=== PATIENT | female | born 1945 | race Caucasian/White ===

== ENCOUNTER → 2016-07-27 | Outpatient (REF) | payer OTHER ==
[2016-07-27 12:33] LABS: ALBUMIN 3.7 GM/DL (3.2-5.2); ALBUMIN/GLOBULIN RATIO 1.19 (1.00-1.93); ALKALINE PHOSPHATASE 59 U/L (45-117); ALT/SGPT 21 U/L (12-78); ANION GAP 7 MEQ/L (8-16); AST/SGOT 11 U/L (15-37); BILIRUBIN,TOTAL 0.4 MG/DL (0.2-1.0); BLOOD UREA NITROGEN 20 MG/DL (7-18); CALCIUM LEVEL 8.9 MG/DL (8.8-10.2); CARBON DIOXIDE LEVEL 27 MEQ/L (21-32); CHLORIDE LEVEL 109 MEQ/L (98-107); CHOLESTEROL LEVEL 218 MG/DL (<200); CREATININE FOR GFR 0.95 MG/DL (0.55-1.02); FREE T4 1.25 NG/DL (0.76-1.46); GLOMERULAR FILTRATION RATE > 60.0 (>39); GLUCOSE, FASTING 90 MG/DL (83-110); POTASSIUM SERUM 4.1 MEQ/L (3.5-5.1); SODIUM LEVEL 143 MEQ/L (136-145); TOTAL PROTEIN 6.8 GM/DL (6.4-8.2); TRIGLYCERIDES LEVEL 166 MG/DL (<150)
== END ==
LOC: M SFHCCLAY 08:13
PROVIDERS: ATTEND Family Medicine
DX: E78.2 Mixed hyperlipidemia (principal); E03.9 Hypothyroidism, unspecified; M85.80 Other specified disorders of bone density and structure, unspecified site

== ENCOUNTER → 2017-01-28 | Outpatient (REF) | payer OTHER ==
[2017-01-28 13:46] LABS: ALBUMIN 3.8 GM/DL (3.2-5.2); ALBUMIN/GLOBULIN RATIO 1.15 (1.00-1.93); ALKALINE PHOSPHATASE 55 U/L (45-117); ALT/SGPT 25 U/L (12-78); ANION GAP 9 MEQ/L (8-16); AST/SGOT 14 U/L (15-37); BILIRUBIN,TOTAL 0.4 MG/DL (0.2-1.0); BLOOD UREA NITROGEN 19 MG/DL (7-18); CALCIUM LEVEL 9.4 MG/DL (8.8-10.2); CARBON DIOXIDE LEVEL 28 MEQ/L (21-32); CHLORIDE LEVEL 106 MEQ/L (98-107); CHOLESTEROL LEVEL 217 MG/DL (<200); FREE T4 1.19 NG/DL (0.76-1.46); GLOMERULAR FILTRATION RATE > 60.0 (>39); GLUCOSE, FASTING 96 MG/DL (83-110); POTASSIUM SERUM 4.1 MEQ/L (3.5-5.1); SODIUM LEVEL 143 MEQ/L (136-145); TOTAL PROTEIN 7.1 GM/DL (6.4-8.2); TRIGLYCERIDES LEVEL 132 MG/DL (<150)
== END ==
LOC: M SFHCCLAY 08:37
PROVIDERS: ATTEND Family Medicine
DX: E78.2 Mixed hyperlipidemia (principal); E03.9 Hypothyroidism, unspecified; M85.80 Other specified disorders of bone density and structure, unspecified site

== ENCOUNTER 2017-04-28 06:40 | Day surgery (SDC) | payer OTHER ==
[2017-04-28] MEDS: NS 500 ML IV (07:09)
[2017-04-28] MEDS ORDERED: PROPOFOL 200 MG/20 ML VIAL As Ordered (07:20)
[2017-04-28] MEDS ORDERED: LIDOCAINE 2% INJ 100 MG/5 ML SDV (FOR ANES.) As Ordered (07:20)
== END 2017-04-28 08:23 | disposition home or self-care (01) ==
LOC: M OPP 06:40
DX: Z12.11 Encounter for screening for malignant neoplasm of colon (principal); K64.0 First degree hemorrhoids; K57.30 Diverticulosis of large intestine without perforation or abscess without bleeding; Z80.0 Family history of malignant neoplasm of digestive organs; E03.9 Hypothyroidism, unspecified; Z78.0 Asymptomatic menopausal state; R06.83 Snoring; Z79.899 Other long term (current) drug therapy
CPT/HCPCS: G0105

== ENCOUNTER → 2017-07-07 | Outpatient (REF) | payer OTHER ==
[2017-07-07 17:30] LABS: ALBUMIN 4.2 GM/DL (3.2-5.2); ALBUMIN/GLOBULIN RATIO 1.27 (1.00-1.93); ALKALINE PHOSPHATASE 64 U/L (45-117); ALT/SGPT 23 U/L (12-78); ANION GAP 6 MEQ/L (8-16); AST/SGOT 13 U/L (7-37); BILIRUBIN,TOTAL 0.4 MG/DL (0.2-1.0); BLOOD UREA NITROGEN 17 MG/DL (7-18); CALCIUM LEVEL 9.5 MG/DL (8.8-10.2); CARBON DIOXIDE LEVEL 29 MEQ/L (21-32); CHLORIDE LEVEL 107 MEQ/L (98-107); CHOLESTEROL LEVEL 239 MG/DL (<200); CHOLESTEROL RISK RATIO 3.567 (<5); CREATININE FOR GFR 0.92 MG/DL (0.55-1.30); GLOMERULAR FILTRATION RATE > 60.0 (>39); GLUCOSE, FASTING 87 MG/DL (70-100); HDL CHOLESTEROL 67 MG/DL (>40); LDL CHOLESTEROL 139.4 MG/DL (<100); NON-HDL-C 172 MG/DL; POTASSIUM SERUM 4.3 MEQ/L (3.5-5.1); SODIUM LEVEL 142 MEQ/L (136-145); TOTAL PROTEIN 7.5 GM/DL (6.4-8.2); TRIGLYCERIDES LEVEL 163 MG/DL (<150)
== END ==
LOC: M SFHCCLAY 11:58
DX: E78.2 Mixed hyperlipidemia (principal); E03.9 Hypothyroidism, unspecified
CPT/HCPCS: 84443

== ENCOUNTER → 2017-09-30 | Outpatient (REF) | payer OTHER ==
[2017-09-30 11:51] LABS: ALBUMIN 3.7 GM/DL (3.2-5.2); ALBUMIN/GLOBULIN RATIO 1.09 (1.00-1.93); ALKALINE PHOSPHATASE 109 U/L (45-117); ALT/SGPT 44 U/L (12-78); ANION GAP 6 MEQ/L (8-16); AST/SGOT 20 U/L (7-37); BILIRUBIN,TOTAL 0.5 MG/DL (0.2-1.0); BLOOD UREA NITROGEN 18 MG/DL (7-18); CALCIUM LEVEL 9.1 MG/DL (8.8-10.2); CARBON DIOXIDE LEVEL 29 MEQ/L (21-32); CHLORIDE LEVEL 107 MEQ/L (98-107); CHOLESTEROL LEVEL 161 MG/DL (<200); CHOLESTEROL RISK RATIO 3.354 (<5); CREATININE FOR GFR 0.84 MG/DL (0.55-1.30); GLOMERULAR FILTRATION RATE > 60.0 (>39); GLUCOSE, FASTING 110 MG/DL (70-100); HDL CHOLESTEROL 48 MG/DL (>40); LDL CHOLESTEROL 58.8 MG/DL (<100); NON-HDL-C 113 MG/DL; SODIUM LEVEL 142 MEQ/L (136-145); TOTAL PROTEIN 7.1 GM/DL (6.4-8.2); TRIGLYCERIDES LEVEL 271 MG/DL (<150)
== END ==
LOC: M SFHCCLAY 08:29
DX: E78.2 Mixed hyperlipidemia (principal)
CPT/HCPCS: 80053

== ENCOUNTER → 2018-01-04 | Outpatient (REF) | payer OTHER ==
[2018-01-04 12:45] LABS: ANION GAP 6 MEQ/L (8-16); BLOOD UREA NITROGEN 18 MG/DL (7-18); CALCIUM LEVEL 9.3 MG/DL (8.8-10.2); CARBON DIOXIDE LEVEL 30 MEQ/L (21-32); CHLORIDE LEVEL 107 MEQ/L (98-107); CREATININE FOR GFR 0.79 MG/DL (0.55-1.30); GLOMERULAR FILTRATION RATE > 60.0 (>39); GLUCOSE, FASTING 87 MG/DL (70-100); POTASSIUM SERUM 4.4 MEQ/L (3.5-5.1); SODIUM LEVEL 143 MEQ/L (136-145)
== END ==
LOC: M SFHCCLAY 08:45
DX: E03.9 Hypothyroidism, unspecified (principal)
CPT/HCPCS: 84443

== ENCOUNTER → 2018-05-25 | Outpatient (CLI) | payer MEDICARE ==
[~2018-05-25] MED LIST: FENO145T13 PO; LORA0.5T11 PO; SYNT50TA PO
--- NOTE | 2018-05-25 09:42 | REPMRS ---
Patient History The patient states she has not had a clinical breast exam in over a year. Patient is postmenopausal. Family history of breast cancer at age 72 in mother, breast cancer at age 63 in sister, breast cancer at age 65 in maternal aunt, colorectal cancer at age 60 in father. Taking unspecified hormones for 10 years. 3D TOMOSYNTHESIS WAS PERFORMED. Digital Mammo Screening Bilat: May 25, 2018 - Exam #: [id number] Bilateral CC and MLO view(s) were taken. Technologist: Kristal Leone Technologist Prior study comparison: July 14, 2011, bilateral digital mammo screening bilat performed at [facility]. March 06, 2008, right breast digital mammo diagnostic unilateral performed at [facility]. FINDINGS: There are scattered fibroglandular densities. There has been no change in the appearance of the mammogram from the prior studies. There is a mild amount of residual fibroglandular tissue which is fairly symmetric. There is no interval development of dominant mass, architectural distortion, or clustered microcalcification suggestive of malignancy. Assessment: BI-RADS/ACR category 1 mammogram. Negative Mammogram. Recommendation Routine screening mammogram in 1 year (for women over age 40). This mammogram was interpreted with the aid of an FDA-approved computer-aided dectection system. Electronically Signed By: Tim Howard MD 05/25/18 0942
== END ==
LOC: M RAD 07:56
PROVIDERS: ATTEND Family Medicine
DX: Z12.31 Encounter for screening mammogram for malignant neoplasm of breast (principal); Z78.0 Asymptomatic menopausal state; Z80.3 Family history of malignant neoplasm of breast; Z80.0 Family history of malignant neoplasm of digestive organs

== ENCOUNTER → 2018-07-04 | Outpatient (REF) | payer MEDICARE ==
[2018-07-04 12:27] LABS: ALBUMIN 3.5 GM/DL (3.2-5.2); ALT/SGPT 41 U/L (12-78); BILIRUBIN,TOTAL 0.6 MG/DL (0.2-1.0); BLOOD UREA NITROGEN 18 MG/DL (7-18); CALCIUM LEVEL 8.8 MG/DL (8.8-10.2); CARBON DIOXIDE LEVEL 25 MEQ/L (21-32); CHLORIDE LEVEL 109 MEQ/L (98-107); CHOLESTEROL LEVEL 173 MG/DL (<200); CREATININE FOR GFR 0.83 MG/DL (0.55-1.30); GLOMERULAR FILTRATION RATE > 60.0 (>39); GLUCOSE, FASTING 88 MG/DL (70-100); HDL CHOLESTEROL 46 MG/DL (>40); LDL CHOLESTEROL 68 MG/DL (<100); NON-HDL-C 127 MG/DL; POTASSIUM SERUM 4.2 MEQ/L (3.5-5.1); SODIUM LEVEL 142 MEQ/L (136-145); TOTAL PROTEIN 6.7 GM/DL (6.4-8.2); TRIGLYCERIDES LEVEL 296 MG/DL (<150)
== END ==
LOC: M SFHCCLAY 09:14
PROVIDERS: ATTEND Family Medicine
DX: E03.9 Hypothyroidism, unspecified (principal); E78.2 Mixed hyperlipidemia

== ENCOUNTER → 2019-07-03 | Outpatient (REF) | payer MEDICARE ==
[~2019-07-03] MED LIST changes: -FENO145T13 PO; +FENO145T7 PO; -LORA0.5T11 PO; +LORA0.5T5 PO
[2019-07-03 11:50] LABS: ALBUMIN 3.6 GM/DL (3.2-5.2); ALT/SGPT 46 U/L (12-78); BILIRUBIN,TOTAL 0.7 MG/DL (0.2-1.0); BLOOD UREA NITROGEN 17 MG/DL (7-18); CALCIUM LEVEL 9.3 MG/DL (8.8-10.2); CARBON DIOXIDE LEVEL 29 MEQ/L (21-32); CHLORIDE LEVEL 109 MEQ/L (98-107); CHOLESTEROL LEVEL 173 MG/DL (<200); CHOLESTEROL RISK RATIO 3.326 (<5); CREATININE FOR GFR 0.82 MG/DL (0.55-1.30); GLOMERULAR FILTRATION RATE > 60.0 (>39); GLUCOSE, FASTING 95 MG/DL (70-100); HDL CHOLESTEROL 52 MG/DL (>40); LDL CHOLESTEROL 76 MG/DL (<100); NON-HDL-C 121 MG/DL; POTASSIUM SERUM 4.2 MEQ/L (3.5-5.1); SODIUM LEVEL 142 MEQ/L (136-145); TOTAL PROTEIN 6.9 GM/DL (6.4-8.2); TRIGLYCERIDES LEVEL 224 MG/DL (<150)
== END ==
LOC: M SFHCCLAY 08:44
PROVIDERS: ATTEND Family Medicine
DX: E78.2 Mixed hyperlipidemia (principal); E03.9 Hypothyroidism, unspecified

== ENCOUNTER → 2020-07-01 | Outpatient (REF) | payer MEDICARE ==
[2020-07-02 12:06] LABS: ALBUMIN 3.5 GM/DL (3.2-5.2); ALT/SGPT 34 U/L (12-78); BILIRUBIN,TOTAL 0.6 MG/DL (0.2-1.0); BLOOD UREA NITROGEN 19 MG/DL (7-18); CALCIUM LEVEL 9.7 MG/DL (8.8-10.2); CARBON DIOXIDE LEVEL 30 MEQ/L (21-32); CHLORIDE LEVEL 107 MEQ/L (98-107); CHOLESTEROL LEVEL 166 MG/DL (<200); CHOLESTEROL RISK RATIO 3.531 (<5); CREATININE FOR GFR 0.86 MG/DL (0.55-1.30); GLOMERULAR FILTRATION RATE > 60.0 (>39); GLUCOSE, FASTING 120 MG/DL (70-100); HDL CHOLESTEROL 47 MG/DL (>40); LDL CHOLESTEROL 54 MG/DL (<100); NON-HDL-C 119 MG/DL; POTASSIUM SERUM 4.1 MEQ/L (3.5-5.1); SODIUM LEVEL 142 MEQ/L (136-145); TOTAL PROTEIN 6.9 GM/DL (6.4-8.2); TRIGLYCERIDES LEVEL 325 MG/DL (<150)
== END ==
LOC: M SFHCCLAY 13:55
PROVIDERS: ATTEND Family Medicine
DX: E78.2 Mixed hyperlipidemia (principal); E03.9 Hypothyroidism, unspecified

== ENCOUNTER → 2021-07-24 | Outpatient (REF) | payer MEDICARE ==
[2021-07-24 16:26] LABS: BASO % 0.3 % (0.0-1.0); EOS # 0.1 10^3/uL (0.0-0.5); EOS % 1.9 % (0.0-3.0); HEMATOCRIT 45.7 % (36.0-47.0); HEMOGLOBIN 14.9 g/dl (12.0-15.5); LYMPH # 2.3 10^3/uL (1.5-5.0); LYMPH % 31.2 % (24.0-44.0); MEAN CORPUSCULAR HGB CONC 32.6 g/dl (32.0-36.5); MEAN CORPUSCULAR VOLUME 89.1 fl (80.0-96.0); MONO # 0.6 10^3/uL (0.0-0.8); MONO % 8.6 % (2.0-8.0); NEUTROPHILS # 4.1 10^3/uL (1.5-8.5); NEUTROPHILS % 57.4 % (36.0-66.0); PLATELET COUNT, AUTOMATED 227 10^3/uL (150-450); RED BLOOD COUNT 5.13 10^6/uL (4.00-5.40); WHITE BLOOD COUNT 7.2 10^3/uL (4.0-10.0)
[2021-07-24 17:05] LABS: ALBUMIN 3.6 GM/DL (3.2-5.2); BILIRUBIN,TOTAL 1.2 MG/DL (0.2-1.0); CALCIUM LEVEL 9.3 MG/DL (8.8-10.2); CHOLESTEROL RISK RATIO 2.529 (<5); CREATININE FOR GFR 1.02 MG/DL (0.55-1.30); GLOMERULAR FILTRATION RATE 56.2 (>39); POTASSIUM SERUM 4.7 MEQ/L (3.5-5.1); THYROID STIMULATING HORMONE 1.8 uIU/ML (0.358-3.740); TOTAL PROTEIN 6.6 GM/DL (6.4-8.2)
== END ==
LOC: M SFHCCLAY 09:36
PROVIDERS: ATTEND Family Medicine
DX: E03.9 Hypothyroidism, unspecified (principal); E78.2 Mixed hyperlipidemia

== ENCOUNTER → 2022-08-17 | Outpatient (REF) | payer MEDICARE ==
[2022-08-17 17:51] LABS: ALBUMIN 3.5 G/DL (3.2-5.2); ALKALINE PHOSPHATASE 103 U/L (46-116); ALT/SGPT 33 U/L (7.0-40); AST/SGOT 21 U/L (<34); BILIRUBIN,TOTAL 0.9 MG/DL (0.3-1.2); BLOOD UREA NITROGEN 17 MG/DL (9-23); CALCIUM LEVEL 9.3 MG/DL (8.3-10.6); CARBON DIOXIDE LEVEL 27 MMOL/L (20-31); CHLORIDE LEVEL 108 MMOL/L (98-107); CHOLESTEROL LEVEL 154 MG/DL (<200); CHOLESTEROL RISK RATIO 3.39 (<5); CREATININE FOR GFR 0.85 MG/DL (0.55-1.30); GLOMERULAR FILTRATION RATE > 60.0 (>39); GLUCOSE, FASTING 146 MG/DL (74-106); HDL CHOLESTEROL 45.4 MG/DL (>40); LDL CHOLESTEROL 70.4 MG/DL (<100); NON-HDL-C 108.6 MG/DL; POTASSIUM SERUM 3.9 MMOL/L (3.5-5.1); SODIUM LEVEL 143 MMOL/L (136-145); TOTAL PROTEIN 6.3 G/DL (5.7-8.2); TRIGLYCERIDES LEVEL 191 MG/DL (<150)
[2022-08-17 17:53] LABS: FREE T4 1.15 NG/DL (0.89-1.76)
== END ==
LOC: M SFHCCLAY 12:32
PROVIDERS: ATTEND Family Medicine
DX: E78.2 Mixed hyperlipidemia (principal); E03.9 Hypothyroidism, unspecified

== ENCOUNTER → 2023-03-01 | Outpatient (REF) | payer MEDICARE ==
[2023-03-01 18:45] LABS: BASO % 0.4 % (0.0-1.0); EOS # 0.1 10^3/uL (0.0-0.5); EOS % 1.4 % (0.0-3.0); HEMOGLOBIN 15.7 g/dl (12.0-15.5); LYMPH # 1.8 10^3/uL (1.5-5.0); LYMPH % 21.4 % (24.0-44.0); MEAN CORPUSCULAR HEMOGLOBIN 28.9 pg (27.0-33.0); MEAN CORPUSCULAR HGB CONC 32.7 g/dl (32.0-36.5); MEAN CORPUSCULAR VOLUME 88.4 fl (80.0-96.0); MONO # 0.7 10^3/uL (0.0-0.8); MONO % 7.9 % (2.0-8.0); NEUTROPHILS # 5.8 10^3/uL (1.5-8.5); NEUTROPHILS % 68.1 % (36.0-66.0); PLATELET COUNT, AUTOMATED 280 10^3/uL (150-450); RED BLOOD COUNT 5.43 10^6/uL (4.00-5.40); WHITE BLOOD COUNT 8.5 10^3/uL (4.0-10.0)
[2023-03-01 19:06] LABS: HEMOGLOBIN A1c 5.2 % (4.0-6.0)
[2023-03-01 19:14] LABS: ALBUMIN 3.7 G/DL (3.2-5.2); ALKALINE PHOSPHATASE 115 U/L (46-116); ALT/SGPT 36 U/L (7.0-40); AST/SGOT 20 U/L (<34); BILIRUBIN,TOTAL 0.8 MG/DL (0.3-1.2); BLOOD UREA NITROGEN 18 MG/DL (9-23); CARBON DIOXIDE LEVEL 28 MMOL/L (20-31); CHLORIDE LEVEL 105 MMOL/L (98-107); CREATININE FOR GFR 0.88 MG/DL (0.55-1.30); FREE T4 1.26 NG/DL (0.89-1.76); GLOMERULAR FILTRATION RATE > 60.0 (>39); GLUCOSE, FASTING 121 MG/DL (74-106); SODIUM LEVEL 142 MMOL/L (136-145); THYROID STIMULATING HORMONE 2.728 uIU/ML (0.55-4.78); TOTAL PROTEIN 6.9 G/DL (5.7-8.2)
== END ==
LOC: M SFHCCLAY 10:31
PROVIDERS: ATTEND Physician Assistant
DX: F41.9 Anxiety disorder, unspecified (principal); R73.09 Other abnormal glucose

== ENCOUNTER 2023-03-07 10:45 | Inpatient (IN) | payer MEDICARE ==
[~2023-03-07] VITALS: Ht 167.6 cm; Wt 77.7 kg
[2023-03-07] MEDS ORDERED: ATIV1TAB10 PO (11:02)
[2023-03-07] MEDS ORDERED: LEVO50TA5 PO (11:02)
[2023-03-07] MEDS ORDERED: HYDR-3363 PO (11:02)
[2023-03-07] MEDS ORDERED: SERT50TA29 PO (11:02)
[2023-03-07] MEDS ORDERED: ATOR40TA75 PO (11:02)
[2023-03-07] MEDS ORDERED: MED REC IN PROGRESS XX SCH (11:15)
[2023-03-07 11:55] LABS: HEMATOCRIT 47.8 % (36.0-47.0); HEMOGLOBIN 15.9 g/dl (12.0-15.5); MEAN CORPUSCULAR HGB CONC 33.3 g/dl (32.0-36.5); MEAN CORPUSCULAR VOLUME 87.1 fl (80.0-96.0); PLATELET COUNT, AUTOMATED 315 10^3/uL (150-450); RED BLOOD COUNT 5.49 10^6/uL (4.00-5.40)
[2023-03-07 12:14] LABS: AMPHETAMINES LEVEL URINE NEGATIVE (NEGATIVE); BARBITURATES URINE NEGATIVE (NEGATIVE); BENZODIAZEPINES URINE NEGATIVE (NEGATIVE); CANNABINOIDS URINE NEGATIVE (NEGATIVE); COCAINE METABOLITE URINE NEGATIVE (NEGATIVE); METHADONE URINE NEGATIVE (NEGATIVE); OPIATES URINE NEGATIVE (NEGATIVE)
[2023-03-07 12:16] LABS: ETHYL ALCOHOL (ETHANOL) < 0.003 % (0.000-0.010); PHENCYCLIDINE URINE NEGATIVE (NEGATIVE)
[2023-03-07 12:18] LABS: ALKALINE PHOSPHATASE 125 U/L (46-116); ALT/SGPT 43 U/L (7.0-40); AST/SGOT 21 U/L (<34); BILIRUBIN,DIRECT 0.4 MG/DL (<0.4); BILIRUBIN,TOTAL 1.2 MG/DL (0.3-1.2); BLOOD UREA NITROGEN 15 MG/DL (9-23); CALCIUM LEVEL 9.5 MG/DL (8.3-10.6); CARBON DIOXIDE LEVEL 24 MMOL/L (20-31); CHLORIDE LEVEL 105 MMOL/L (98-107); CREATININE FOR GFR 0.81 MG/DL (0.55-1.30); GLOMERULAR FILTRATION RATE > 60.0 (>39); GLUCOSE, FASTING 96 MG/DL (74-106); POTASSIUM SERUM 3.6 MMOL/L (3.5-5.1); SALICYLATE LEVEL < 3.0 MG/DL (<30); SODIUM LEVEL 141 MMOL/L (136-145); TOTAL PROTEIN 7.2 G/DL (5.7-8.2)
[2023-03-07 12:20] LABS: THYROID STIMULATING HORMONE 3.769 uIU/ML (0.55-4.78)
[2023-03-07] MEDS ORDERED: BIMA01SOL OU (12:51)
[2023-03-07] MEDS ORDERED: HOME MED LIST COMPLETE! XX SCH (13:00)
[2023-03-07] MEDS: hydrOXYzine 50 MG TAB PO SCH (21:14)
[2023-03-08] MEDS ORDERED: QUEtiapine FUMARATE 25 MG TAB PO ONE (03:00)
[2023-03-08] MEDS: LEVOTHYROXINE 50MCG TABLET (0.05MG) PO SCH (06:17)
[2023-03-08] MEDS ORDERED: SERTRALINE HCL 50 MG TAB PO SCH (09:00)
[2023-03-08] MEDS: ATORVASTATIN 20 MG TAB PO SCH (09:08)
[2023-03-08] MEDS ORDERED: diphenhydrAMINE 25MG CAP PO PRN (12:45)
[2023-03-08] MEDS ORDERED: MAALOX 30 ML SUSP *UDC PO PRN (12:45)
[2023-03-08] MEDS ORDERED: traZODone 50 MG TAB PO PRN (12:45)
[2023-03-08] MEDS ORDERED: MOM 30ML SUSPENSION UDC PO PRN (12:45)
[2023-03-08] MEDS ORDERED: ACETAMINOPHEN TAB 650MG DOSE (2X325MG) PO PRN (12:45)
[2023-03-08 16:55] VITALS: BP 140/90; TEMP 98.6; O2SAT 100
[2023-03-08] MEDS: hydrOXYzine 50 MG TAB PO SCH (20:12)
[2023-03-09] MEDS: LEVOTHYROXINE 50MCG TABLET (0.05MG) PO SCH (05:41)
[2023-03-09 06:50] VITALS: BP 148/86; TEMP 97.4; O2SAT 99
[2023-03-09] MEDS: LISINOPRIL *2.5 MG* TAB PO SCH (09:00)
[2023-03-09] MEDS ORDERED: hydrOXYzine 50 MG TAB PO PRN ×2 (09:10→20:10)
[2023-03-09] MEDS ORDERED: traZODone 50 MG TAB PO PRN (09:10)
[2023-03-09] MEDS: ATORVASTATIN 20 MG TAB PO SCH (09:15)
[2023-03-09] MEDS: SERTRALINE HCL 25 MG TABLET PO SCH (09:16)
[2023-03-09] MEDS ORDERED: PILL CUTTER 1 EACH XX PRN (09:20)
[2023-03-09 14:46] VITALS: BP 122/64; TEMP 98.6; O2SAT 96
[2023-03-09] MEDS ORDERED: [UNRECOGNIZED DRUG - OTHER] OU SCH ×2 (19:30→20:29)
[2023-03-09] MEDS: LORazepam 0.5 MG TAB PO SCH (20:23)
[2023-03-09] MEDS: [UNRECOGNIZED DRUG - OTHER] OU SCH (20:37)
[2023-03-09] MEDS ORDERED: MIRTAZAPINE 7.5MG PER 1/2 TABLET PO SCH (21:00)
[2023-03-10] MEDS: LEVOTHYROXINE 50MCG TABLET (0.05MG) PO SCH (05:38)
[2023-03-10 06:46] VITALS: BP 120/66; TEMP 98.6; O2SAT 97
[2023-03-10] MEDS: hydrOXYzine 50 MG TAB PO PRN ×2 (08:26→20:19)
[2023-03-10] MEDS: ATORVASTATIN 20 MG TAB PO SCH (08:26)
[2023-03-10] MEDS: SERTRALINE HCL 25 MG TABLET PO SCH (08:26)
[2023-03-10] MEDS: LISINOPRIL *2.5 MG* TAB PO SCH (08:30)
[2023-03-10 17:09] VITALS: BP 121/78; TEMP 97.6; O2SAT 95
[2023-03-10] MEDS: LORazepam 0.5 MG TAB PO SCH (20:18)
[2023-03-10] MEDS: [UNRECOGNIZED DRUG - OTHER] OU SCH (20:55)
[2023-03-11] MEDS: LEVOTHYROXINE 50MCG TABLET (0.05MG) PO SCH (05:51)
[2023-03-11 06:41] VITALS: BP 127/75; TEMP 98.6; O2SAT 99
[2023-03-11] MEDS: LISINOPRIL *2.5 MG* TAB PO SCH (08:01)
[2023-03-11] MEDS: ATORVASTATIN 20 MG TAB PO SCH (08:04)
[2023-03-11] MEDS: SERTRALINE HCL 25 MG TABLET PO SCH (08:05)
[2023-03-11] MEDS: LORazepam 0.5 MG TAB PO SCH (11:17)
[2023-03-11 18:29] VITALS: BP 134/86; TEMP 96.4; O2SAT 97
[2023-03-11] MEDS: MIRTAZAPINE 7.5MG PER 1/2 TABLET PO SCH (19:59)
[2023-03-11] MEDS: [UNRECOGNIZED DRUG - OTHER] OU SCH (20:05)
[2023-03-12] MEDS: LEVOTHYROXINE 50MCG TABLET (0.05MG) PO SCH (05:39)
[2023-03-12 06:23] VITALS: BP 129/62; TEMP 98.3; O2SAT 98
[2023-03-12] MEDS: SERTRALINE HCL 25 MG TABLET PO SCH (08:09)
[2023-03-12] MEDS: ATORVASTATIN 20 MG TAB PO SCH (08:09)
[2023-03-12] MEDS: LISINOPRIL *2.5 MG* TAB PO SCH (08:10)
[2023-03-12] MEDS: LORazepam 0.5 MG TAB PO SCH (08:10)
[2023-03-12] MEDS: hydrOXYzine 50 MG TAB PO PRN (08:59)
[2023-03-12 17:56] VITALS: BP 128/82; TEMP 99.2; O2SAT 97
[2023-03-12] MEDS: MIRTAZAPINE 7.5MG PER 1/2 TABLET PO SCH (20:03)
[2023-03-12] MEDS: [UNRECOGNIZED DRUG - OTHER] OU SCH (20:04)
[2023-03-13] MEDS: LEVOTHYROXINE 50MCG TABLET (0.05MG) PO SCH (05:46)
[2023-03-13 06:28] VITALS: BP 150/72; TEMP 98.5; O2SAT 97
[2023-03-13] MEDS: ATORVASTATIN 20 MG TAB PO SCH (08:05)
[2023-03-13] MEDS: LISINOPRIL *2.5 MG* TAB PO SCH (08:05)
[2023-03-13] MEDS: SERTRALINE HCL 25 MG TABLET PO SCH (08:05)
[2023-03-13] MEDS: LORazepam 0.5 MG TAB PO SCH (08:05)
[2023-03-13 19:19] VITALS: BP 127/77; TEMP 97.4; O2SAT 97
[2023-03-13] MEDS: MIRTAZAPINE 7.5MG PER 1/2 TABLET PO SCH (20:08)
[2023-03-13] MEDS: [UNRECOGNIZED DRUG - OTHER] OU SCH (20:08)
[2023-03-14 05:51] VITALS: BP 123/66; TEMP 98; O2SAT 99
[2023-03-14] MEDS: LEVOTHYROXINE 50MCG TABLET (0.05MG) PO SCH (06:05)
[2023-03-14] MEDS: SERTRALINE HCL 25 MG TABLET PO SCH (08:15)
[2023-03-14] MEDS: LORazepam 0.5 MG TAB PO SCH (08:15)
[2023-03-14] MEDS: ATORVASTATIN 20 MG TAB PO SCH (08:15)
[2023-03-14] MEDS: LISINOPRIL *2.5 MG* TAB PO SCH ×2 (08:23→08:24)
[2023-03-14] MEDS: IBUPROFEN 400MG TAB PO PRN (10:03)
[2023-03-14] MEDS: hydrOXYzine 50 MG TAB PO PRN (12:07)
[2023-03-14 18:17] VITALS: BP 140/73; TEMP 98.1; O2SAT 98
[2023-03-14] MEDS: MIRTAZAPINE 7.5MG PER 1/2 TABLET PO SCH (20:22)
[2023-03-14] MEDS: [UNRECOGNIZED DRUG - OTHER] OU SCH (20:23)
[2023-03-15] MEDS: LEVOTHYROXINE 50MCG TABLET (0.05MG) PO SCH (05:36)
[2023-03-15 06:32] VITALS: BP 130/65; TEMP 97.2; O2SAT 99
[2023-03-15] MEDS: LISINOPRIL *2.5 MG* TAB PO SCH (08:02)
[2023-03-15] MEDS: SERTRALINE HCL 25 MG TABLET PO SCH (08:03)
[2023-03-15] MEDS: LORazepam 0.5 MG TAB PO SCH (08:03)
[2023-03-15] MEDS: ATORVASTATIN 20 MG TAB PO SCH (08:03)
[2023-03-15] MEDS: IBUPROFEN 400MG TAB PO PRN (09:03)
[2023-03-15] MEDS: hydrOXYzine 50 MG TAB PO PRN (12:26)
[2023-03-15 16:11] VITALS: BP 111/60; TEMP 98.4; O2SAT 100
[2023-03-15] MEDS: MIRTAZAPINE 7.5MG PER 1/2 TABLET PO SCH (20:15)
[2023-03-15] MEDS: [UNRECOGNIZED DRUG - OTHER] OU SCH (20:15)
[2023-03-16] MEDS: LEVOTHYROXINE 50MCG TABLET (0.05MG) PO SCH (05:31)
[2023-03-16 06:25] VITALS: BP 136/63; TEMP 97.4; O2SAT 98
[2023-03-16 08:16] VITALS: BP 100/63
[2023-03-16] MEDS: SERTRALINE HCL 25 MG TABLET PO SCH (08:16)
[2023-03-16] MEDS: LISINOPRIL *2.5 MG* TAB PO SCH (08:16)
[2023-03-16] MEDS: ATORVASTATIN 20 MG TAB PO SCH (08:16)
[2023-03-16] MEDS: LORazepam 0.5 MG TAB PO SCH (08:16)
[2023-03-16] MEDS ORDERED: MIRT-10 PO (09:13)
[2023-03-16] MEDS ORDERED: SERT25TA21 PO (09:13)
[2023-03-16] MEDS ORDERED: ATIV1TAB10 PO ×2 (09:13→09:17)
[2023-03-16] MEDS ORDERED: HYDR50TA70 PO (09:13)
== END 2023-03-16 12:02 | disposition home or self-care (01) | DRG 881 ==
LOC: M ED 10:45 → M ED INP 03-08 12:42 → M PSY 03-08 16:42
PROVIDERS: ADMIT Student in an Organized Health Care Education/Training Program; ATTEND Student in an Organized Health Care Education/Training Program
DX: F32.A Depression, unspecified (principal); F41.9 Anxiety disorder, unspecified; G47.00 Insomnia, unspecified; E03.9 Hypothyroidism, unspecified; E78.00 Pure hypercholesterolemia, unspecified; R45.850 Homicidal ideations; M85.88 Other specified disorders of bone density and structure, other site; H40.9 Unspecified glaucoma; Z81.8 Family history of other mental and behavioral disorders; Z79.890 Hormone replacement therapy; Z79.899 Other long term (current) drug therapy; Z20.822 Contact with and (suspected) exposure to COVID-19

== ENCOUNTER → 2023-07-12 | Outpatient (REF) | payer MEDICARE ==
[~2023-07-12] MED LIST changes: +ATIV1TAB10 PO; +ATOR40TA75 PO; +BIMA01SOL OU; +HYDR-3363 PO; +HYDR50TA70 PO; +LEVO50TA5 PO; +MIRT-10 PO; +SERT25TA21 PO; +SERT50TA29 PO
== END ==
LOC: M SFHCCLAY 08:24
PROVIDERS: ATTEND Physician Assistant
DX: Z12.4 Encounter for screening for malignant neoplasm of cervix (principal); N94.9 Unspecified condition associated with female genital organs and menstrual cycle
CPT/HCPCS: 87070; 87077; 87186; 87624; G0123

== ENCOUNTER → 2023-08-04 | Outpatient (REF) | payer MEDICARE | LOC: M SFHCCLAY 11:52 | PROVIDERS: ATTEND Physician Assistant | DX: N94.9 Unspecified condition associated with female genital organs and menstrual cycle (principal); Z79.899 Other long term (current) drug therapy ==

== ENCOUNTER → 2023-08-20 | Outpatient (REF) | payer MEDICARE ==
[2023-08-20 17:12] LABS: APPEARANCE, URINE HAZY (CLEAR); BACTERIA, URINE AUTO NEGATIVE (NEGATIVE); BILIRUBIN, URINE AUTO NEGATIVE (NEGATIVE); BLOOD, URINE BLOOD 1+ (NEGATIVE); COLOR, URINE YELLOW (YELLOW); GLUCOSE, URINE (UA) AUTO NEGATIVE (NEGATIVE); KETONE, URINE AUTO NEGATIVE (NEGATIVE); LEUKOCYTE ESTERASE, URINE AUTO NEGATIVE (NEGATIVE); MUCUS, URINE SMALL (NEGATIVE); NITRITE, URINE AUTO NEGATIVE (NEGATIVE); PROTEIN, URINE AUTO NEGATIVE (NEGATIVE); RBC, URINE AUTO 1 /HPF (0-3); SPECIFIC GRAVITY URINE AUTO 1.015 (1.002-1.035); SQUAMOUS EPITHELIAL CELL UR AU 10 /HPF (0-6); UROBILINOGEN, URINE AUTO 0.2 mg/dL (0.0-2.0); WBC, URINE AUTO 1 /HPF (0-3)
[2023-08-20 18:01] LABS: ALBUMIN 3.4 G/DL (3.2-5.2); ALKALINE PHOSPHATASE 156 U/L (46-116); ALT/SGPT 46 U/L (7.0-40); AST/SGOT 26 U/L (<34); BILIRUBIN,TOTAL 0.7 MG/DL (0.3-1.2); BLOOD UREA NITROGEN 16 MG/DL (9-23); CALCIUM LEVEL 8.8 MG/DL (8.3-10.6); CARBON DIOXIDE LEVEL 30 MMOL/L (20-31); CHLORIDE LEVEL 106 MMOL/L (98-107); CHOLESTEROL LEVEL 174 MG/DL (<200); CHOLESTEROL RISK RATIO 4.01 (<5); CREATININE FOR GFR 0.87 MG/DL (0.55-1.30); GLOMERULAR FILTRATION RATE > 60.0 (>39); GLUCOSE, FASTING 88 MG/DL (74-106); HDL CHOLESTEROL 43.3 MG/DL (>40); LDL CHOLESTEROL 87.9 MG/DL (<100); NON-HDL-C 130.7 MG/DL; POTASSIUM SERUM 4.4 MMOL/L (3.5-5.1); SODIUM LEVEL 140 MMOL/L (136-145); THYROID STIMULATING HORMONE 1.975 uIU/ML (0.55-4.78); TOTAL PROTEIN 6.4 G/DL (5.7-8.2); TRIGLYCERIDES LEVEL 214 MG/DL (<150)
[2023-08-20 18:03] LABS: HEMOGLOBIN A1c 5.1 % (4.0-6.0)
== END ==
LOC: M SFHCCLAY 10:09
PROVIDERS: ATTEND Family Medicine
DX: E78.2 Mixed hyperlipidemia (principal); N30.01 Acute cystitis with hematuria; E03.9 Hypothyroidism, unspecified; R73.01 Impaired fasting glucose

== ENCOUNTER → 2023-08-26 | Outpatient (REF) | payer MEDICARE ==
[2023-08-26 16:09] LABS: APPEARANCE, URINE HAZY (CLEAR); BACTERIA, URINE AUTO NEGATIVE (NEGATIVE); BILIRUBIN, URINE AUTO NEGATIVE (NEGATIVE); BLOOD, URINE BLOOD NEGATIVE (NEGATIVE); COLOR, URINE YELLOW (YELLOW); GLUCOSE, URINE (UA) AUTO NEGATIVE (NEGATIVE); KETONE, URINE AUTO NEGATIVE (NEGATIVE); LEUKOCYTE ESTERASE, URINE AUTO NEGATIVE (NEGATIVE); MUCUS, URINE SMALL (NEGATIVE); NITRITE, URINE AUTO NEGATIVE (NEGATIVE); PROTEIN, URINE AUTO NEGATIVE (NEGATIVE); RBC, URINE AUTO 0 /HPF (0-3); SPECIFIC GRAVITY URINE AUTO 1.023 (1.002-1.035); SQUAMOUS EPITHELIAL CELL UR AU 4 /HPF (0-6); UROBILINOGEN, URINE AUTO 0.2 mg/dL (0.0-2.0); WBC, URINE AUTO 1 /HPF (0-3)
== END ==
LOC: M SMT 14:57
PROVIDERS: ATTEND Nurse Practitioner Family
DX: R31.29 Other microscopic hematuria (principal)

== ENCOUNTER → 2023-12-20 | Outpatient (REF) | payer MEDICARE ==
[2023-12-20 19:23] LABS: HEMATOCRIT 44.3 % (36.0-47.0); HEMOGLOBIN 14.2 g/dl (12.0-15.5); MEAN CORPUSCULAR HEMOGLOBIN 28.6 pg (27.0-33.0); MEAN CORPUSCULAR HGB CONC 32.1 g/dl (32.0-36.5); MEAN CORPUSCULAR VOLUME 89.3 fl (80.0-96.0); PLATELET COUNT, AUTOMATED 221 10^3/uL (150-450); RED BLOOD COUNT 4.96 10^6/uL (4.00-5.40); WHITE BLOOD COUNT 5.7 10^3/uL (4.0-10.0)
[2023-12-20 19:59] LABS: THYROID STIMULATING HORMONE 1.778 uIU/ML (0.55-4.78)
[2023-12-20 20:01] LABS: FREE T4 1.06 NG/DL (0.89-1.76)
[2023-12-20 21:26] LABS: ALBUMIN 3.5 G/DL (3.2-5.2); ALKALINE PHOSPHATASE 126 U/L (46-116); ALT/SGPT 20 U/L (7.0-40); AST/SGOT 18 U/L (<34); BILIRUBIN,TOTAL 0.8 MG/DL (0.3-1.2); BLOOD UREA NITROGEN 19 MG/DL (9-23); CALCIUM LEVEL 9.4 MG/DL (8.3-10.6); CARBON DIOXIDE LEVEL 29 MMOL/L (20-31); CHLORIDE LEVEL 109 MMOL/L (98-107); CREATININE FOR GFR 0.91 MG/DL (0.55-1.30); GLOMERULAR FILTRATION RATE > 60.0 (>39); GLUCOSE, FASTING 87 MG/DL (74-106); MAGNESIUM LEVEL 2.5 MG/DL (1.8-2.4); POTASSIUM SERUM 4.8 MMOL/L (3.5-5.1); SODIUM LEVEL 141 MMOL/L (136-145); TOTAL PROTEIN 6.6 G/DL (5.7-8.2)
[2023-12-20 22:27] LABS: TOTAL T3 91.4 NG/DL (60.0-181.0)
== END ==
LOC: M SFHCCLAY 10:05
PROVIDERS: ATTEND Family Medicine
DX: E03.9 Hypothyroidism, unspecified (principal); K21.9 Gastro-esophageal reflux disease without esophagitis; R73.01 Impaired fasting glucose

== ENCOUNTER → 2024-01-25 | Outpatient (REF) | payer MEDICARE | LOC: M SFHCWAGY 17:02 | PROVIDERS: ATTEND Nurse Practitioner Family | DX: N73.9 Female pelvic inflammatory disease, unspecified (principal) ==

== ENCOUNTER → 2024-01-26 | Outpatient (REF) | payer MEDICARE | LOC: M PLALAB 08:12 | PROVIDERS: ATTEND Nurse Practitioner Family | DX: L29.2 Pruritus vulvae (principal) ==

== ENCOUNTER → 2024-05-01 | Outpatient (CLI) | payer MEDICARE ==
[2024-05-01 16:46] LABS: HCG, SERUM QUALITATIVE NEGATIVE (NEGATIVE)
== END ==
LOC: M PLALAB 13:11
PROVIDERS: ATTEND Nurse Practitioner Family
DX: Z32.02 Encounter for pregnancy test, result negative (principal)

== ENCOUNTER → 2024-08-31 | Outpatient (REF) | payer MEDICARE ==
[2024-08-31 17:29] LABS: HEMATOCRIT 43.1 % (36.0-47.0); HEMOGLOBIN 14.3 g/dl (12.0-15.5); MEAN CORPUSCULAR HEMOGLOBIN 28.5 pg (27.0-33.0); MEAN CORPUSCULAR HGB CONC 33.2 g/dl (32.0-36.5); PLATELET COUNT, AUTOMATED 234 10^3/uL (150-450); RED BLOOD COUNT 5.01 10^6/uL (4.00-5.40); WHITE BLOOD COUNT 5.9 10^3/uL (4.0-10.0)
[2024-08-31 17:37] LABS: HEMOGLOBIN A1c 5.4 % (4.0-6.0)
[2024-08-31 17:51] LABS: ALBUMIN 3.6 G/DL (3.2-5.2); BILIRUBIN,TOTAL 0.8 MG/DL (0.3-1.2); CALCIUM LEVEL 9.4 MG/DL (8.3-10.6); CHOLESTEROL RISK RATIO 3.8 (<5); CREATININE FOR GFR 0.85 MG/DL (0.55-1.30); GLOMERULAR FILTRATION RATE 70.1 (>39); HDL CHOLESTEROL 44.7 MG/DL (>40); LDL CHOLESTEROL 85.5 MG/DL (<100); MAGNESIUM LEVEL 2.3 MG/DL (1.8-2.4); NON-HDL-C 125.3 MG/DL; POTASSIUM SERUM 4.4 MMOL/L (3.5-5.1); TOTAL PROTEIN 6.7 G/DL (5.7-8.2)
[2024-08-31 17:55] LABS: THYROID STIMULATING HORMONE 1.836 uIU/ML (0.55-4.78)
[2024-08-31 17:57] LABS: FREE T4 1.11 NG/DL (0.89-1.76)
[2024-08-31 17:58] LABS: TOTAL T3 87.5 NG/DL (60.0-181.0)
== END ==
LOC: M SFHCCLAY 10:42
PROVIDERS: ATTEND Family Medicine
DX: K21.9 Gastro-esophageal reflux disease without esophagitis (principal); R73.01 Impaired fasting glucose; E03.9 Hypothyroidism, unspecified; R73.09 Other abnormal glucose; E78.2 Mixed hyperlipidemia

== ENCOUNTER → 2025-03-19 | Outpatient (REF) | payer MEDICARE | LOC: M SFHCWAGY 12:58 | PROVIDERS: ATTEND Nurse Practitioner Family | DX: L29.2 Pruritus vulvae (principal) ==

== ENCOUNTER → 2025-04-24 | Outpatient (REF) | payer MEDICARE | LOC: M SFHCWAGY 17:32 | PROVIDERS: ATTEND Nurse Practitioner Family | DX: N73.9 Female pelvic inflammatory disease, unspecified (principal) ==